=== PATIENT | male | born 1975 | race Caucasian/White ===

== ENCOUNTER 2018-04-10 08:34 | Day surgery (SDC) | payer BC ==
[2018-04-10] VITALS (462 sets, daily range): BP systolic 83–125; BP diastolic 44–86; PULSE 60–128; TEMP 96.6–98.7; O2SAT 74–100
[~2018-04-10] VITALS: Ht 188 cm; Wt 59.5 kg
[2018-04-10] MEDS ORDERED: IBU400 MG PO (09:23)
[2018-04-10] MEDS ORDERED: B-12 100 MCG PO (09:24)
[2018-04-10] MEDS ORDERED: TYLENOL 500MG500 MG PO (09:24)
[2018-04-10] MEDS ORDERED: MULTIPLE VITAMI1 CAP PO (09:25)
[2018-04-10] MEDS ORDERED: FENTANYL 75MCG TD (09:26)
[2018-04-10] MEDS ORDERED: XANAX2 MG PO (09:26)
[2018-04-10] MEDS ORDERED: NORCO 325 MG-101 TAB PO ×2 (09:27→11:18)
[2018-04-10] MEDS ORDERED: ZANAFLEX 4MG TAB4 MG PO (13:43)
[2018-04-10 14:35] LABS: BASO # 0.1 (0.0-0.2); BASO % 0.6 % (0.0-2.0); EOS # 0.3 (0.0-0.7); EOS % 3.4 % (0-4.0); GRAN # 6.1 (1.4-6.5); HEMATOCRIT 40.3 % (42.0-52.0); HEMOGLOBIN 14.4 g/dl (13.5-18.0); LYMPH # 1.6 (1.2-3.4); LYMPH % 18.8 % (20.0-51.0); MEAN CELL VOLUME 99 fl (80.0-100.0); MEAN CORPUSCULAR HEMOGLOBIN 35 pg (27.0-31.0); MEAN CORPUSCULAR HGB CONC 36 g/dl (33.0-37.0); MEAN PLATELET VOLUME 8.8 fl (7.4-10.4); MONO # 0.4 (0.1-0.6); MONO % 4.8 % (1.7-9.3); PLATELET COUNT 183 K/mm3 (130-400); RED BLOOD COUNT 4.07 M/mm3 (4.20-5.60); REDCELL DISTRIBUTION WIDTH-CV 11.8 % (11.5-14.5)
[2018-04-10 14:48] LABS: CALCIUM 9.1 mg/dL (8.4-10.2); MAGNESIUM 1.8 mg/dL (1.6-2.3); PHOSPHOROUS 2.4 mg/dL (2.5-4.5); POTASSIUM 3.9 mmol/L (3.4-5.0)
[2018-04-11] VITALS (476 sets, daily range): BP systolic 87–121; BP diastolic 54–91; PULSE 53–82; TEMP 98.1–98.5; O2SAT 80–100
[2018-04-11 00:12] LABS: AMORPHOUS CRYSTAL Present /uL; PH 5 (5-8); SQUAMOUS EPITHELIAL 0-2 /hpf; URINE APPEARANCE Clear; URINE BACTERIA None Seen /hpf; URINE BILIRUBIN Negative (NEGATIVE); URINE BLOOD Negative (NEGATIVE); URINE COLOR Yellow; URINE GLUCOSE Negative (NEGATIVE); URINE KETONE Negative (NEGATIVE); URINE LEUKOCYTE ESTERASE Negative (NEGATIVE); URINE NITRATE Negative (NEGATIVE); URINE PROTEIN(semi-quant) Negative (NEGATIVE); URINE RBC 0-2 /hpf; URINE UROBILINOGEN Negative (NEGATIVE); URINE WBC None Seen /hpf
[2018-04-11 00:21] LABS: TRICYCLIC ANTIDEPRESS URINE NEGATIVE
[2018-04-11 00:38] LABS: COLLECTION METHOD CLEAN CATCH
[2018-04-11 04:47] LABS: BARBITURATE SCREEN BLOOD Not Detected (()); BENZODIAZEPINE SCREEN BLOOD Not Detected (()); DRUG SCREEN BLD - ALCOHOL None Detected (()); TRICYCLIC SCREEN BLOOD Not Detected (())
[2018-04-11 04:51] LABS: SALICYLATE SCREEN BLOOD Not Detected (())
[2018-04-11 05:13] LABS: BASO # 0.1 (0.0-0.2); BASO % 0.9 % (0.0-2.0); EOS # 0.4 (0.0-0.7); EOS % 5.8 % (0-4.0); GRAN # 4.3 (1.4-6.5); GRAN % 62.4 % (42.2-75.2); HEMATOCRIT 38.9 % (42.0-52.0); HEMOGLOBIN 13.6 g/dl (13.5-18.0); LYMPH # 1.6 (1.2-3.4); LYMPH % 23.2 % (20.0-51.0); MEAN CELL VOLUME 101 fl (80.0-100.0); MEAN CORPUSCULAR HEMOGLOBIN 35 pg (27.0-31.0); MEAN CORPUSCULAR HGB CONC 35 g/dl (33.0-37.0); MEAN PLATELET VOLUME 8.9 fl (7.4-10.4); MONO # 0.5 (0.1-0.6); MONO % 7.4 % (1.7-9.3); PLATELET COUNT 176 K/mm3 (130-400); RED BLOOD COUNT 3.84 M/mm3 (4.20-5.60); REDCELL DISTRIBUTION WIDTH-CV 11.9 % (11.5-14.5)
[2018-04-11 05:22] LABS: CALCIUM 8.2 mg/dL (8.4-10.2); CREATININE, serum 0.91 mg/dL (0.66-1.25)
== END 2018-04-11 10:30 | disposition home or self-care (01) ==
LOC: SDCO 08:34 → ICU 13:26 → SDCO 04-11 10:30
PROVIDERS: Hospitalist
DX: R22.2 Localized swelling, mass and lump, trunk (principal); L02.215 Cutaneous abscess of perineum; G89.29 Other chronic pain; M54.5 Low back pain; G62.9 Polyneuropathy, unspecified; Z88.8 Allergy status to other drugs, medicaments and biological substances; J42 Unspecified chronic bronchitis; F17.210 Nicotine dependence, cigarettes, uncomplicated; Z88.5 Allergy status to narcotic agent; K21.9 Gastro-esophageal reflux disease without esophagitis; D64.9 Anemia, unspecified; J93.9 Pneumothorax, unspecified
CPT/HCPCS: OP; 99222; J0690; J1630; J2060; J2704; J3010; J7030; J7120